=== PATIENT | female | born 1980 | race Two or more races ===

== ENCOUNTER 2025-03-12 05:49 | Day surgery (SDC) | payer OTHER ==
[2025-03-08 09:01] VITALS: BP 112/80
[~2025-03-12] VITALS: Ht 172.7 cm; Wt 70.8 kg
[2025-03-12] MEDS ORDERED: POVIDONE-IODINE 118 ML BOTT TOP ONE (08:52)
[2025-03-12] MEDS ORDERED: ONDANSETRON HCL 2 MG/ML VIAL IV ONE (10:00)
[2025-03-12] MEDS ORDERED: MORPHINE SULFATE 4 MG/ML VIAL IV ONE (10:00)
== END 2025-03-12 15:15 | disposition home or self-care (01) ==
LOC: CIR.AMB 05:49
PROVIDERS: ATTEND Obstetrics & Gynecology
DX: N84.0 Polyp of corpus uteri (principal); N93.8 Other specified abnormal uterine and vaginal bleeding; Z88.6 Allergy status to analgesic agent